=== PATIENT | male | born 1980 | race Two or more races ===

== ENCOUNTER 2016-04-09 07:53 | Emergency (ER) | payer SELFPAY ==
[~2016-04-09] VITALS: Ht 175.3 cm; Wt 84.4 kg
[2016-04-09] MEDS ORDERED: METF-314 PO (09:14)
[2016-04-09 09:15] LABS: Basophils # (auto) 0 uL; Basophils % (auto) 0.4 % (0.0-2.0); DEFINITIVE VIEW TRANSMISSION; Eosinophils # (auto) 0.1 uL; Eosinophils % (auto) 1.5 % (0.0-7.0); Hematocrit 46.8 % (41.0-53.0); Hemoglobin 14.7 g/dL (13.5-17.5); Lymphocytes # (auto) 2.1 uL; Lymphocytes % (auto) 29.4 % (10.0-50.0); Mean Corpuscular Hemoglobin 26.6 pg (28.0-32.0); Mean Corpuscular Hgb Conc. 31.5 g/dL (32.0-36.0); Mean Corpuscular Volume 84.5 fL (80.0-100.0); Mean Platelet Volume 7.9 fL (7.4-10.4); Monocytes # (auto) 0.5 uL; Monocytes % (auto) 6.7 % (0.0-12.0); Neutrophils # (auto) 4.4 uL; Platelet Count (auto) 366 10^3/uL (140-450)
[2016-04-09 09:24] LABS: Urine Bilirubin Negative (Negative); Urine Blood Negative /uL (Negative); Urine Color Yellow (Yellow); Urine Glucose Normal (Normal); Urine Ketone Negative (Negative); Urine Mucus FEW (None Seen); Urine Nitrite Negative (Negative); Urine RBC 1 /hpf (0 - 3); Urine Sperm PRESENT /hpf (None Seen); Urine Urobilinogen Normal (Negative)
[2016-04-09 09:28] LABS: INR 1.02 (0.9-1.15); Partial Thromboplastin Time 29.9 sec (22.64-33.71); Prothrombin Time 10.5 sec (9.37-12.3)
[2016-04-09 09:32] LABS: Albumin 3.8 g/dL (3.4-5.0); BUN/Creatinine Ratio 14.8; Calcium 8.8 mg/dL (8.5-10.1); Potassium 4.2 mmol/L (3.5-5.1)
[2016-04-09 09:40] LABS: Bilirubin, Total 0.3 mg/dL (0.2-1.0)
[2016-04-09] MEDS ORDERED: SODIUM CHLORIDE 0.9% 1,000 ML IV ONE (12:00)
[2016-04-09 13:49] VITALS: BP 134/88
== END 2016-04-09 13:50 | disposition home or self-care (01) ==
LOC: ER 07:58
DX: E11.9 Type 2 diabetes mellitus without complications (principal)
CPT/HCPCS: 36415; 70450; 71010; 80053; 81001; 82962; 83735; 85025; 85610; 85730; 93005; 94761; 96360; 96361; 99285; G0434; J7030